=== PATIENT | female | born 1990 | race Caucasian/White ===

== ENCOUNTER 2017-06-28 13:49 | Emergency (ER) | payer MEDICAID, OTHER ==
[~2017-06-28] VITALS: Ht 165.1 cm; Wt 62.8 kg
[2017-06-28] MEDS ORDERED: SODIUM CHLORIDE 0.9% 1,000 ML IV ONE (14:18)
[2017-06-28] MEDS ORDERED: ONDANSETRON 2MG/ML, 2ML IVPush ONE (14:30)
[2017-06-28] MEDS ORDERED: SODIUM CHLORIDE FLUSH 10ML SYR IVF ONE (14:30)
[2017-06-28] MEDS ORDERED: SODIUM CHLORIDE 0.9% 1,000ML IVBOLUS ONE (14:30)
[2017-06-28] MEDS ORDERED: HYDROmorphone 1 MG/ML, 1ML IVPush PRN (14:30)
[2017-06-28] MEDS ORDERED: ONDANSETRON 2MG/ML, 2ML ONE (14:54)
[2017-06-28] MEDS ORDERED: HYDROmorphone 1 MG/ML, 1ML ONE (14:54)
[2017-06-28 15:06] LABS: HEMATOCRIT 42.2 % (34.6-47.8); HEMOGLOBIN 14.4 g/dL (11.7-16.4); WHITE BLOOD COUNT 10.4 x10^3/uL (3.4-10)
[2017-06-28 15:17] LABS: BLOOD UREA NITROGEN 10 mg/dL (7-18)
[2017-06-28 15:23] LABS: ASPARTATE AMINO TRANSFERASE 8 U/L (15-37)
[2017-06-28 16:07] VITALS: BP 108/57
[2017-06-28] MEDS ORDERED: OMNIPAQUE 350 MG/ML, 100ML BOTTLE ONE (16:40)
== END 2017-06-28 17:49 | disposition home or self-care (01) ==
LOC: ED 15:36
DX: N30.90 Cystitis, unspecified without hematuria (principal); R11.2 Nausea with vomiting, unspecified
CPT/HCPCS: 36415; 74177; 76700; 80053; 81001; 83690; 84703; 85025; 87086; 96361; 96374; 96375; 99285; J1170; J2405; J7030; Q9967